=== PATIENT | female | born 1950 | race Caucasian/White ===

== ENCOUNTER 2017-11-12 10:33 | Day surgery (SDC) | payer MEDICARE ==
[~2017-11-12 10:33] MED LIST: Apraclonidine 0.5% Ophth Soln 5 ML Bot EYERT SCH; Cefuroxime 10 MG/ML SYRINGE EYERT SCH; Lidocaine 1% PF 2 ML SDV INJECT SCH; Phenylephrine 2.5% Ophth Soln 2 ML Bot EYERT SCH; Pilocarpine 4% Ophth Soln 15 ML Bot EYERT SCH; Polymyxin B/Trimethoprim 10 ML Bottle EYERT SCH; Proparacaine 0.5% Ophth Soln 15 ML Bottle EYEBOTH SCH; Tetracaine 0.5% 2 ML Bottle EYERT SCH
[2017-11-12] MEDS: Polymyxin B/Trimethoprim 10 ML Bottle EYERT SCH ×3 (10:46→12:49)
--- NOTE | 2017-11-12 10:49 | PCM.PREANE ---
Preanesthetic Assessment - Procedure Proposed Procedure: cataract right eye - Anesthesia/Transfusion/Family Hx Anesthesia History: Prior Anesthesia Without Reaction Family History of Anesthesia Reaction: No Transfusion History: No Prior Transfusion(s) - Review of Systems General: No Symptoms Pulmonary: No Symptoms Cardiovascular: No Symptoms Gastrointestinal: No Symptoms Neurological: No Symptoms Other: Reports: None - Physical Assessment NPO Status Date: 11/11/17 NPO Status Time: 19:00 Pulse: 55 O2 Sat by Pulse Oximetry: 98 Respiratory Rate: 16 Blood Pressure: 133/81 Temperature: 98 F Height: 5 ft 4 in Weight: 47.174 kg ASA Class: 2 Mental Status: Alert & Oriented x3 Airway Class: Mallampati = 1 Dentition: Reports: Normal Dentition, Missing Tooth/Teeth Thyro-Mental Finger Breadths: 3 Mouth Opening Finger Breadths: 3 ROM/Head Extension: Full Lungs: Clear to Auscultation, Normal Respiratory Effort Cardiovascular: Regular Rate, Regular Rhythm - Allergies Allergies/Adverse Reactions: Allergies Allergy/AdvReac Type Severity Reaction Status Date / Time No Known Allergies Allergy Verified 07/11/15 14:17 - Blood Blood Available: No - Acknowledgements Anesthesia Type Planned: MAC Pt an Appropriate Candidate for the Planned Anesthesia: Yes Alternatives and Risks of Anesthesia Discussed w Pt/Guardian: Yes Pt/Guardian Understands and Agrees with Anesthesia Plan: Yes PreAnesthesia Questionnaire - Past Health History Medical/Surgical History: Denies Medical/Surgical History Cardiovascular History: Reports: None Respiratory History: Reports: None Gastrointestinal History: Reports: None - Past Surgical History HEENT Surgical History: Reports: Cataract Surgery, Other (See Below) (face lift 2011) - SUBSTANCE USE Smoking Status *Q: Never Smoker Tobacco Use Within Last Twelve Months: No Second Hand Smoke Exposure: No Days Per Week of Alcohol Use: 1 Number of Drinks Per Day: 1 Total Drinks Per Week: 1 Recreational Drug Use History: No - HOME MEDS Home Medications: Home Meds LORazepam [Ativan] 0.5 mg PO ASDIRECTED PRN 11/11/17 [History] - CURRENT (IN HOUSE) MEDS Current Meds: Current Medications Brimonidine Tartrate (Alphagan 0.2% Ophth Soln) 0 ml EYERT ASDIRECTED FRANC Stop: 11/12/17 19:00 Cefuroxime Sodium (Zinacef) 0 mg EYERT ASDIRECTED FRANC Stop: 11/12/17 19:00 Lidocaine HCl (Xylocaine-Mpf 1%) 0 ml INJECT ASDIRECTED FRANC Stop: 11/12/17 19:00 Phenylephrine HCl (Kris-Synephrine 2.5% Ophth Soln) 0 ml EYERT ASDIRECTED FRANC Stop: 11/12/17 19:00 Pilocarpine HCl (Pilocar 4% Ophth Soln) 0 ml EYERT ASDIRECTED FRANC Stop: 11/12/17 18:00 Polymyxin/Trimethoprim Sulfate (Polytrim Ophth Soln) 0 ml EYERT ASDIRECTED FRANC Stop: 11/12/17 19:00 Tetracaine HCl (Tetracaine 0.5% Steri-Unit Arlen) 0 ml EYERT ASDIRECTED FRANC Stop: 11/12/17 19:00 Tropicamide (Mydriacyl 1% Ophth Soln) 0 ml EYERT ASDIRECTED FRANC Stop: 11/12/17 19:00 Discontinued Medications Apraclonidine HCl (Iopidine 0.5% Ophth Soln) 0 ml EYERT ASDIRECTED FRANC Stop: 04/08/16 16:00 Cefuroxime Sodium (Zinacef) 10 mg EYERT ASDIRECTED FRANC Stop: 04/08/16 16:00 Lidocaine HCl (Xylocaine-Mpf 1%) 2 ml INJECT ASDIRECTED FRANC Stop: 04/07/16 16:00 Phenylephrine HCl (Kris-Synephrine 2.5% Ophth Soln) 0 ml EYERT ASDIRECTED FRANC Stop: 04/08/16 16:00 Pilocarpine HCl (Pilocar 4% Ophth Soln) 0 ml EYERT ASDIRECTED FRANC Stop: 04/08/16 16:00 Polymyxin/Trimethoprim Sulfate (Polytrim Ophth Soln) 1 ml EYERT ASDIRECTED FRANC Stop: 04/08/16 16:00 Proparacaine HCl (Proparacaine 0.5% Ophth Soln) 0 ml EYEBOTH ASDIRECTED FRANC Stop: 04/08/16 16:00 Tetracaine (Pontocaine 0.5% Ophth Drops) 0 ml EYERT ASDIRECTED FRANC Stop: 04/08/16 16:00 Tropicamide (Mydriacyl 1% Ophth Soln) 0 ml EYERT ASDIRECTED FRANC Stop: 04/08/16 16:00
[2017-11-12] MEDS: Brimonidine 0.2% Ophth Soln 5 ML Bottle EYERT SCH ×3 (10:51→12:49)
[2017-11-12] MEDS: Phenylephrine 2.5% Ophth Soln 2 ML Bot EYERT SCH ×5 (10:56→12:22)
[2017-11-12] MEDS: Tropicamide 1% Ophth Soln 3 ML Bottle EYERT SCH ×4 (11:01→11:50)
[2017-11-12] MEDS: Tetracaine HCl/PF 0.5% 4 ML Bottle EYERT SCH ×2 (12:06→12:37)
--- NOTE | 2017-11-12 12:56 | PCM48HPAN ---
Post Anesthesia Note - EVALUATION WITHIN 48HRS OF ANESTHETIC Vital Signs in Normal Range: Yes Patient Participated in Evaluation: Yes Respiratory Function Stable: Yes Airway Patent: Yes Cardiovascular Function Stable: Yes Hydration Status Stable: Yes Pain Control Satisfactory: Yes Nausea and Vomiting Control Satisfactory: Yes Mental Status Recovered: Yes
[2017-11-12 13:00] VITALS: BP 127/73
== END 2017-11-12 12:58 | disposition home or self-care (01) ==
LOC: JD.SDS 10:33
PROVIDERS: ATTEND Ophthalmology
DX: H25.811 Combined forms of age-related cataract, right eye (principal); H31.092 Other chorioretinal scars, left eye; H17.813 Minor opacity of cornea, bilateral; H43.813 Vitreous degeneration, bilateral; H35.372 Puckering of macula, left eye; Z98.42 Cataract extraction status, left eye; Z96.1 Presence of intraocular lens; Z79.899 Other long term (current) drug therapy
CPT/HCPCS: 66984; C1780; J0697; J2001; A9270-GY